=== PATIENT | male | born 1990 | race Caucasian/White ===

== ENCOUNTER → 2021-11-11 16:13 | Outpatient (CLI) | payer SELFPAY ==
--- NOTE | 2021-11-11 16:27 | ECG_ITS ---
APPROVED REPORT Exam: Resting ECG HR:63 bpm ECG Measurements Heart Rate 63 AXES MD 185 P 52 QRSd 103 QRS -9 QT 384 T 47 QTc 392 Conclusion SINUS RHYTHM WITH SINUS ARRHYTHMIA NORMAL ECG UNCONFIRMED REPORT Electronically signed by : Subhash Fernandez MD 11/11/2021 16:50:23
--- NOTE | 2021-11-11 16:34 | XR_ITS ---
PROCEDURE INFORMATION: Exam: XR Chest Exam date and time: 11/11/2021 4:38 PM Age: 31 years old Clinical indication: Pain; Chest pressure; Additional info: Cherst pain TECHNIQUE: Imaging protocol: XR of the chest. Views: 2 views. COMPARISON: No relevant prior exams. FINDINGS: Lungs: Unremarkable. No consolidation. Pleural spaces: Unremarkable. No pleural effusion. No pneumothorax. Heart/Mediastinum: Unremarkable. No cardiomegaly. Bones/joints: Unremarkable. IMPRESSION: No acute cardiopulmonary disease.
== END ==
PROVIDERS: PCP Family Medicine; Visit Provider Family Medicine
DX: R07.9 Chest pain, unspecified (principal)
CPT/HCPCS: 71046; 93005